=== PATIENT | female | born 1980 | race Caucasian/White ===

== ENCOUNTER 2023-08-08 17:47 | Emergency (ER) | payer OTHER, SELFPAY ==
[2023-08-08 17:56] VITALS: BP 133/76
--- NOTE | 2023-08-08 18:59 | ED.GENMED ---
History of Present Illness
General
Chief Complaint: Musculo-Skeletal Complaint
Source: patient
Time Seen by Provider: 08/08/23 18:46
Travel History
Have you had any contact with someone who has COVID-19?: No
Do you have any symptoms of coronavirus? Fever > 100 degrees, chills, cough, shortness of breath, sore throat, loss of taste or smell, muscle aches, or headache?: No
History of Present Illness
History of Present Illness:
42-year-old female presenting to the emergency department for evaluation of right-sided ankle pain after she had an accidental trip and fall noting pain and swelling over the lateral aspect of the ankle. Mild pain with ambulation. Notes a history
of sprain to the same ankle about 15 years ago. No other injuries were sustained patient did take some Advil prior to arrival.
Past History
Past History
ED Past Medical History: Psychiatric (Anxiety/depression)
ED Past Surgical History: None
Social History
Tobacco: Non-smoker
Alcohol: None
Drug: None
Personal:
Living: with family
Family History
Family History: Other (Noncontributory)
Review of Systems
Review of Systems
All Other Systems: ROS reviewed and negative except as documented in HPI and ROS
Phy Exam
Physical Exam
Physical Exam:
GENERAL: Alert , in no apparent distress
EYE: conjunctiva clear
Head: Normocephalic atraumatic
NECK: Supple,
ENT: mmm.
LUNGS: no acute respiratory distress
NEUROLOGICAL: Alert and oriented
SKIN: Warm and dry, skin intact.
MUSCULOSKELETAL: Right ankle: Mild soft tissue swelling to the lateral malleolus with tenderness over this area. No tenderness at base of the foot metatarsal. No laxity of the calcaneal tendon, no proximal tib-fib tenderness. Extremities
otherwise warm and well-perfused and neurovascularly intact.
PSYCH: Normal and appropriate interaction.
Scores
Heart Failure Risk
Heart Failure Risk Score: Not Applicable
Heart Score for Chest Pain Patients
STEMI patient?: Not applicable
Withdrawal Assessment of Alcohol
Withdrawal Assessment Completed?: Not applicable
Course
Orders/Labs/Results
Orders:
Orders
08/08/23 17:59
CR Ankle - Right Min 3 Views * Urgent
Comment:
Reason For Exam: fall/pain
08/08/23 19:00
Romel Wrap Right-Treatment ONCE
Crutches-Treatment ONCE
Vital Signs
Initial and Last Documented VS:
Initial Vital Signs
Temp Pulse Resp BP Pulse Ox
97.9 F 89 20 133/76 99
08/08/23 17:56 08/08/23 17:56 08/08/23 17:56 08/08/23 17:56 08/08/23 17:56
Last Documented Vital Signs
Temp Pulse Resp BP Pulse Ox
97.9 F 89 20 133/76 99
08/08/23 17:56 08/08/23 17:56 08/08/23 17:56 08/08/23 17:56 08/08/23 17:56
MDM/Problems Addressed
Differential Diagnosis Includes:
Sprain, contusion, fracture
MDM/Problems Addressed:
42-year-old female presenting to the emergency department for evaluation of right ankle pain and swelling after an accidental trip and fall. X-ray was ordered from triage and is ultimately negative for any fracture. Will place in an Romel wrap for
compression as well as crutches for support while ambulating. Stable for discharge home and outpatient management as needed.
*Radiology
Radiology exam reviewed: preliminary read by ED provider (No fracture)
*Pulse Oximetry
Patient hypoxic: no
*Critical Care Note
Total Time (30-74mins, 75-104mins- exclusive of procedures): Not Applicable
ED Attending Note
-
Portions of this chart may have been created with voice recognition software.� Occasional wrong word or��sound alike� substitutions may have occurred due to the inherent limitations of voice recognition software.
Discharge Plan
Departure
Patient Disposition: Home (Routine Discharge)
Date of Disposition: 08/08/23
Time of Disposition: 18:59
Patient with high blood pressure during this ER visit?: No
Discharge Problem:
Right ankle sprain
Instructions: Sprain (DC)
Prescriptions:
No Action
Bupropion HCl ER
300 mg PO DAILY
Buspirone
7.5 mg PO TID
Clindamycin
300 mg PO TID
Referrals:
Xander Casas MD [Active] - (Ortho)
Interventions
Interventions:
*Risk Screen - Suicide Last Done: 08/08/23 17:56
*General Assessment Last Done: 08/08/23 17:56
*Neglect/Abuse Screening Last Done: 08/08/23 17:56
Discharge Date and Time
Print Language: CZECH
== END 2023-08-08 19:34 | disposition home or self-care (01) ==
LOC: EMR 17:47
PROVIDERS: EMERGENCY PHYSICIAN Student in an Organized Health Care Education/Training Program; FAMILY PHYSICIAN Family Medicine
DX: S93.401A Sprain of unspecified ligament of right ankle, initial encounter (principal); W01.0XXA Fall on same level from slipping, tripping and stumbling without subsequent striking against object, initial encounter; F41.8 Other specified anxiety disorders
CPT/HCPCS: 99283; 73610